=== PATIENT | female | born 1980 | race Caucasian/White ===

== ENCOUNTER 2018-05-22 16:27 | Emergency (ER) | payer BC ==
[~2018-05-22] VITALS: Wt 68.0 kg
[2018-05-22] MEDS ORDERED: LORAZEPAM 0.5 MG TAB PO ONE (19:30)
[2018-05-22] MEDS ORDERED: LORA-441 PO (20:24)
[2018-05-22] MEDS ORDERED: ACET500C5 PO (20:24)
--- NOTE | 2018-05-22 20:28 | ERD ---
ER Documentation Chief Complaint Chief Complaint ANXIETY HPI 37-year-old female presents with approximately 2-month history of headache after head injury. She also symptoms of anxiety though uncertain if it is anxiety or related to her head injury. She has intermittent sensation of chest discomfort without shortness of breath, vomiting, abdominal pain, urinary complaints. She had a cold last week with her symptoms resolved. ROS All systems reviewed and are negative except as per history of present illness. Medications Home Meds Active Scripts Lorazepam* (Ativan*) 0.5 Mg Tablet, 0.5 MG PO Q8, #10 TAB Prov:OLAYINKA OVIEDO MD 05/22/18 Acetaminophen* (Tylophen*) 500 Mg Capsule, 1 CAP PO Q6H PRN for PAIN AND OR ELEVATED TEMP, #20 CAP Prov:OLAYINKA OVIEDO MD 05/22/18 Allergies Allergies: Coded Allergies: No Known Allergy (Unverified , 05/22/18) PMhx/Soc Medical and Surgical Hx: pt denies Medical Hx, pt denies Surgical Hx Hx Alcohol Use: Yes Hx Substance Use: No Hx Tobacco Use: No Smoking Status: Never smoker FmHx Family History: No diabetes, No coronary disease, No other Physical Exam Vitals Vital Signs Date Temp Pulse Resp B/P (MAP) Pulse Ox O2 O2 Flow FiO2 Time Delivery Rate 05/22/18 98.6 78 18 141/76 99 16:31 (97) Physical Exam Const: No acute distress Head: Atraumatic. Mild tenderness in the right gnosticist.. Mild tenderness to right gnosticist without deformities, additional abnormalities. Eyes: Normal Conjunctiva and eyes prone extractor movements intact. ENT: Normal External Ears, Nose and Mouth. Neck: Full range of motion. No meningismus. Resp: Clear to auscultation bilaterally Cardio: Regular rate and rhythm, no murmurs Abd: Soft, non tender, non distended. Normal bowel sounds Skin: No petechiae or rashes Back: No midline or flank tenderness Ext: No cyanosis, or edema Neur: Awake and alert. Normal gait. No appreciable focal neurologic deficits. No cerebellar signs. Negative Romberg and no pronator drift. Psych: Normal Mood and Affect Results 24 hrs Laboratory Tests Test 05/22/18 19:27 05/22/18 19:54 POC Beta HCG, Qualitative NEGATIVE Bedside Urine pH (LAB) 6.0 Bedside Urine Protein (LAB) Negative Bedside Urine Glucose (UA) Negative Bedside Urine Ketones (LAB) Negative Bedside Urine Blood Negative Bedside Urine Nitrite (LAB) Negative Bedside Urine Leukocyte Esterase (L Negative Current Medications Medications Dose Sig/[place]ell Start Time Status Last (Trade) Ordered Route PRN Stop Time Admin Dose Reason Admin Lorazepam 0.5 mg ONCE ONCE 05/22/18 DC 05/22/18 (Ativan) PO 19:30 05/22/18 19:23 19:31 Procedures/MDM EKG: Rate/Rhythm: Normal Sinus Rhythm. Rate equals 78 QRS, ST, T-waves: No changes consistent w/ acute ischemia Impression: No evidence of ischemia or arrhythmia Is negative. HCG negative. CT brain shows minimal borderline ventriculomegaly are otherwise no acute findings. Patient was given Ativan 0.5 mg mouth. Patient presents with headache, intermittent chest pain, multiple complaints with history of possible anxiety. There is no signs or symptoms of intracranial bleeding, complications due to her head injury 2 months ago. Urine is normal with no glucosuria, additional a bnormalities. We will treat with a short course of reassurance, Ativan, primary care follow-up and return precautions. The patient was stable with no new complaints during the ER course. Clinically, there is no current evidence to suggest meningitis, sepsis, acute abdomen, pneumonia, stroke, acute coronary syndrome, pulmonary embolism, aortic dissection or any other emergent condition appearing to require further evaluation or hospitalization. Patient counseled regarding my diagnostic impression and care plan. Prior to discharge all questions answered. Pt agrees with treatment plan and understands strict return precautions. Pt is instructed to follow up with primary care provider within 24- 48 hours. Precautionary instructions provided including instructions to return to the ER if not improving or for any worsening or changing symptoms or concerns. Departure Diagnosis: Primary Impression: Headache Headache type: unspecified Headache chronicity pattern: unspecified pattern Intractability: not intractable Qualified Codes: R51 - Headache Additional Impression: Anxiety Condition: Stable Patient Instructions: Self-Care for Headaches, Anxiety Reaction Additional Instructions: Examinations normal today. Recheck for new or worsening symptoms with primary care doctor. OLAYINKA OVIEDO MD May 22, 2018 20:28
[2018-05-22 21:04] VITALS: BP 131/78; PULSE 92; RESP 18
== END 2018-05-22 21:06 | disposition home or self-care (01) ==
LOC: FTE 16:27
DX: F41.9 Anxiety disorder, unspecified (principal); R07.89 Other chest pain
CPT/HCPCS: 70450; 81003; 81025; 93005

== ENCOUNTER 2018-06-19 23:36 | Emergency (ER) | payer BC ==
[~2018-06-19] VITALS: Ht 152.4 cm; Wt 61.5 kg
[~2018-06-19 23:36] MED LIST: ACET500C5 PO; LORA-441 PO
[2018-06-19 23:46] VITALS: Ht 152.4 cm; Wt 61.5 kg
--- NOTE | 2018-06-20 00:22 | ERD ---
ER Documentation Chief Complaint Chief Complaint chest pain x 5 days HPI The patient is a 37-year-old female, presenting to the ER because of substernal chest discomfort intermittently for the last 5 days, associated with increased burping and increased flatus. She denies fever, chills, neck pain, chest pain with vomiting/radiation/exertion/diaphoresis, dyspnea, abdominal pain, vomiting, dysuria, complains of constipation. She does not smoke, drinks socially Past medical history: Anxiety Past surgical history: None ROS All systems reviewed and are negative except as per history of present illness. Medications Home Meds Active Scripts Pantoprazole* (Protonix*) 40 Mg Tablet.dr, 40 MG PO DAILY, #10 TAB Prov:TORSTEN VALE MD 06/20/18 Polyethylene Glycol* (Miralax*) 17 Gm Powd.pack, 17 GM PO DAILY, #7 Prov:TORSTEN VALE MD 06/20/18 Lorazepam* (Ativan*) 0.5 Mg Tablet, 0.5 MG PO Q8, #10 TAB Prov:OLAYINKA OVIEDO MD 05/22/18 Acetaminophen* (Tylophen*) 500 Mg Capsule, 1 CAP PO Q6H PRN for PAIN AND OR ELEVATED TEMP, #20 CAP Prov:OLAYINKA OVIEDO MD 05/22/18 Allergies Allergies: Coded Allergies: No Known Allergy (Unverified , 05/22/18) PMhx/Soc Medical and Surgical Hx: pt denies Medical Hx, pt denies Surgical Hx Hx Alcohol Use: Yes Hx Substance Use: No Hx Tobacco Use: No Smoking Status: Never smoker Physical Exam Vitals Vital Signs Date Temp Pulse Resp B/P (MAP) Pulse Ox O2 O2 Flow FiO2 Time Delivery Rate 06/20/18 97.2 82 18 128/82 100 Room Air 01:35 (97) 06/19/18 97.2 85 18 131/80 100 23:46 (97) Physical Exam Const: No acute distress. Head: Atraumatic. Eyes: Normal Conjunctiva. ENT: Normal External Ears, Nose and Mouth. Neck: Full range of motion. No meningismus. Resp: Clear to auscultation bilaterally. Cardio: Regular rate and rhythm. Abd: Soft, non distended, normal bowel sounds, non tender. Skin: No petechiae or rashes. Back: No midline or flank tenderness. Ext: No cyanosis, or edema. Neur: Awake and alert. No focal deficit Psych: Anxious Procedures/MDM EKG: Read by emergency physician Rate/Rhythm: Normal Sinus Rhythm 69 beats/min QRS, ST, T-waves: No ST elevation, no T inversion Impression: Normal EKG MEDICAL MAKING DECISION: The patient is a 37-year-old female, presenting with acute chest pain of unclear etiology, acute constipation. I do not suspect acute ACS. She is stable for outpatient follow-up The differential diagnoses considered include but are not limited to gastritis, GERD, anxiety, acute coronary syndrome, acute myocardial infarction, perica rditis, pulmonary embolism, aortic dissection, pneumonia, pleural effusion, pneumothorax, GERD, chest wall pain. Departure Diagnosis: Primary Impression: Chest pain Additional Impression: Constipation Condition: Good Additional Instructions: She was discharged with MiraLAX and Protonix The patient's blood pressure was elevated (>120/80) but appears stable without evidence of hypertension emergency or urgency. The patient was counseled about the risks of hypertension and urged to pursue outpatient monitoring and therapy within a week with their primary care physician. I discussed the findings with the patient. I advised the patient to follow-up with the primary physician in about 2-3 days, sooner if needed and return if any concern. Disclaimer: Inadvertent spelling and grammatical errors are likely due to EHR/dictation software use and do not reflect on the overall quality of patient care. Also, please note that the electronic time recorded on this note does not necessarily reflect the actual time of the patient encounter. TORSTEN VALE MD Jun 20, 2018 00:22
[2018-06-20] MEDS ORDERED: PANT40TA3 PO (01:26)
[2018-06-20] MEDS ORDERED: POLY17PO6 PO (01:26)
[2018-06-20 01:35] VITALS: BP 128/82; PULSE 82; RESP 18
== END 2018-06-20 01:36 | disposition home or self-care (01) ==
LOC: E/R 23:36
DX: K59.00 Constipation, unspecified (principal)